=== PATIENT | male | born 1985 | race American Indian/Alaskan Native ===

== ENCOUNTER 2017-01-31 09:02 | Emergency (ER) | payer OTHER ==
[~2017-01-31] VITALS: Ht 182.9 cm; Wt 145.2 kg
[~2017-01-31 09:02] MED LIST: AURALGAN EAR DR14 ML AS; AZITHROMYCIN250 MG PO; CEPHALEXIN500 MG PO; CLARITIN10 MG PO; IBUPROFEN600 MG PO; KEFLEX500 MG PO; METHOCARBAMOL500 MG PO; NAPROXEN500 MG PO; NORCO 5-325 TA1 EACH PO; PERCOCET 5-3251 EACH PO; POLYMYXIN B-TMP10 ML OD; ROBITUSSIN15 MG PO; TRAMADOL HCL50 MG PO; ULTRAM50 MG PO; ZOFRAN ODT8 MG PO
[2017-01-31] MEDS ORDERED: SILDENAFIL20 MG PO (09:38)
[2017-01-31] MEDS ORDERED: KEFLEX500 MG PO (10:35)
== END 2017-01-31 10:46 | disposition home or self-care (01) ==
LOC: ED 09:02
DX: S61.241A Puncture wound with foreign body of left index finger without damage to nail, initial encounter (principal); L03.012 Cellulitis of left finger; F17.200 Nicotine dependence, unspecified, uncomplicated; Z79.899 Other long term (current) drug therapy; W45.0XXA Nail entering through skin, initial encounter
CPT/HCPCS: 73130; 99283

== ENCOUNTER 2017-10-15 09:24 | Emergency (ER) | payer OTHER ==
[~2017-10-15] VITALS: Ht 182.9 cm; Wt 145.2 kg
[~2017-10-15 09:24] MED LIST changes: +SILDENAFIL20 MG PO
== END 2017-10-15 10:25 | disposition home or self-care (01) ==
LOC: ED 09:24
PROC: 0HQGXZZ Repair Left Hand Skin, External Approach (ICD-10-PCS; principal; 2017-10-15)
DX: S61.211A Laceration without foreign body of left index finger without damage to nail, initial encounter (principal); F17.200 Nicotine dependence, unspecified, uncomplicated; W45.8XXA Other foreign body or object entering through skin, initial encounter
CPT/HCPCS: 12001; 99282

== ENCOUNTER 2019-09-06 06:24 | Emergency (ER) | payer OTHER ==
[~2019-09-06] VITALS: Ht 182.9 cm; Wt 136.1 kg
--- OUTSIDE RECORDS SUMMARY | ~2019-09-06 | XMS | Clinical Summary ---
Demographics + + + | Address | [address] | | | [place] [address] | + + + | Home Phone | | + + + | Preferred Language | Unknown | + + + | Marital Status | Single | + + + | Tenriism Affiliation | Unknown | + + + | Race | Unknown | + + + | Ethnic Group | Unknown | + + + Author + + + | Author | [facility] | | | and [place] | + + + | Organization | [facility] | | | and [place] | + + + | Address | Unknown | + + + | Phone | Unavailable | + + + Support + + + + + | Name | Relationship | Address | Phone | + + + + + | Dick Fairchild | RAD[place] | [address] | | | | | [place] | | | | | [address] | | + + + + + Care Team Providers + +------+ + | Care Car Hiker Name | Role | Phone | + +------+ + | Pcp, Prov Inactive | PCP | | + +------+ + Allergies Not on File Medications Not on file Active Problems Not on file Social History + +-------+ +--------+------+ | Tobacco Use | Types | Packs/Day | Years | Date | | | | | Used | | + +-------+ +--------+------+ | Never Assessed | | | | | + +-------+ +--------+------+ + + + | Sex Assigned at | Date Recorded | | | | + + + | Not on file | | + + + Last Filed Vital Signs Not on file Plan of Treatment + + +-------+ + | Health Maintenance | Due Date | Last | Comments | | | | Done | | + + +-------+ + | Vaccine: | | | | | Dtap/Tdap/Td (1 - | 6 | | | | Tdap) | | | | + + +-------+ + | Vaccine: Influenza | | | | | (#1) | 0 | | | + + +-------+ + Results Not on filefrom Last 3 Months Insurance + +--------+ +--------+ +---------+--------+ | Payer | Benefi | Subscriber | Effect | Phone | Address | Type | | | t Plan | ID | attila | | | | | | / | | Dates | | | | | | Group | | | | | | + +--------+ +--------+ +---------+--------+ | [employer] | HEALTH | [id number] | | [phone] | | PPO | | | COMP | | 012-Pr | 7 | | | | | FIRST | | esent | | | | | | CHOICE | | | | | | + +--------+ +--------+ +---------+--------+ | [facility] | IHS | [id number] | | | | Indemn | | SERVICE | YELLOW | | 012-Pr | | | ity | | | HAWK | | esent | | | | + +--------+ +--------+ +---------+--------+ + +--------+ +--------+ + + | Guarantor Name | Accoun | Relation to | Date | Phone | Billing Address | | | t Type | Patient | of | | | | | | | | | | + +--------+ +--------+ + + | Ephraim Fairchild | Person | Self [birth year] | [address] | | | al/Fam | | 1986 | [phone] | [address] [place] | | | lillie | | | 9 (Home) | [phone] | | | | | | [phone] | | | | | | | 4 (Work) | | + +--------+ +--------+ + + Advance Directives + + + + + | Type | Date Recorded | Patient | 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
--- OUTSIDE RECORDS SUMMARY | ~2019-09-06 | XMS | Encounter Summary ---
Demographics + + + | Address | [address] | | | [place] [address] | + + + | Home Phone | | + + + | Preferred Language | Unknown | + + + | Marital Status | Single | + + + | Faith Affiliation | Unknown | + + + | Race | Unknown | + + + | Ethnic Group | Unknown | + + + Author + + + | Author | [facility] | | | and [place] | + + + | Organization | [facility] | | | and [place] | + + + | Address | Unknown | + + + | Phone | Unavailable | + + + Support + + + + + | Name | Relationship | Address | Phone | + + + + + | Dick Fairchild | [place] | [address] | | | | | [place] | | | | | [address] | | + + + + + Care Team Providers + +------+ + | Care Senior Maintenance Mechanic Name | Role | Phone | + +------+ + PCP | Unavailable | + +------+ + Encounter Details +--------+ + + + + | Date | Type | Department | Care Team | Description | +--------+ + + + + | 06/05/ | Hospital | [facility] | Gm Choudhary, | | | 1991 | Encounter | [facility] | MD [address] [facility] | | | | | [address] | [place] | | | | | [place] | [id number] | | | | | [address] | | | | | | [phone] | | | +--------+ + + + + Social History + +-------+ +--------+------+ | Tobacco [...] on file | | + + + documented as of this encounter Plan of Treatment Not on filedocumented as of this encounter Visit Diagnoses Not on filedocumented in this encounter"
--- OUTSIDE RECORDS SUMMARY | 2019-09-06 06:26 | XMS ---
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 Andra has no Care Guidelines for this patient. Reyes VISIT COUNT (12 MO.) 1 GINA Jaimes TOTAL 1 NOTE: Visits indicate total known visits. ED/UCC VISIT TRACKING (12 MO.) 09/06/2019 06:25 GINA Reed [place] TYPE: Emergency COMPLAINT: - SPIDER BITE INPATIENT VISIT TRACKING (12 MO.) No inpatient visits to display in this time frame [id number]
[2019-09-06] MEDS ORDERED: CLEOCIN HCL300 MG PO (10:12)
== END 2019-09-06 10:58 | disposition home or self-care (01) ==
LOC: ED 06:24
DX: K11.1 Hypertrophy of salivary gland (principal); F17.200 Nicotine dependence, unspecified, uncomplicated
CPT/HCPCS: 70491; 80048; 85025; 96374; 96375; 99284-25; J1100; J1200; J3490; Q9967

== ENCOUNTER 2020-06-15 17:15 | Emergency (ER) | payer OTHER ==
[~2020-06-15] VITALS: Ht 182.9 cm; Wt 122.0 kg
[~2020-06-15 17:15] MED LIST changes: +CLEOCIN HCL300 MG PO
--- NOTE | 2020-06-16 10:40 | EKG ---
[facility] [address] [facility] [place] [address] Signed Normal sinus rhythm Normal ECG No previous ECGs available Confirmed by BEL SUH MD ([id number]) on 06/16/2020 10:40:30 AM Electronically Signed By: BEL SUH MD 06/16/20 1040 PATIENT NAME: JAMES RAMOS Electrocardiogram DATE OF : 87 PHYSICIAN: BEL SUH MD REPORT #: [id number] REPORT IS CONFIDENTIAL AND NOT TO BE RELEASED WITHOUT AUTHORIZATION
== END 2020-06-15 18:57 | disposition home or self-care (01) ==
LOC: ED 17:15
DX: T40.411A Poisoning by fentanyl or fentanyl analogs, accidental (unintentional), initial encounter (principal); F17.200 Nicotine dependence, unspecified, uncomplicated
CPT/HCPCS: 71045; 80053; 84484; 85025; 93005; 93010; 99284-25

== ENCOUNTER 2021-10-30 21:42 | Emergency (ER) | payer OTHER ==
[~2021-10-30] VITALS: Ht 182.9 cm; Wt 130.0 kg
--- NOTE | 2021-10-31 17:36 | EKG ---
[facility] [address] [facility] [place] [address] Signed Sinus tachycardia Otherwise normal ECG When compared with ECG of 15-JUN-2020 18:09, No significant change was found Confirmed by BENITEZ FRANKLIN MD ([id number]) on 10/31/2021 5:36:36 PM Electronically Signed By: BENITEZ FRANKLIN MD 10/31/21 1736 PATIENT NAME: JAMES RAMOS Electrocardiogram DATE OF : 87 PHYSICIAN: BENITEZ FRANKLIN MD REPORT #: [id number] REPORT IS CONFIDENTIAL AND NOT TO BE RELEASED WITHOUT AUTHORIZATION
== END 2021-10-31 03:45 | disposition short-term general hospital (02) ==
LOC: ED 21:42
DX: U07.1 COVID-19 (principal); T40.411A Poisoning by fentanyl or fentanyl analogs, accidental (unintentional), initial encounter; J69.0 Pneumonitis due to inhalation of food and vomit; J96.90 Respiratory failure, unspecified, unspecified whether with hypoxia or hypercapnia; F17.200 Nicotine dependence, unspecified, uncomplicated
CPT/HCPCS: 31500; 36415; 36556; 36600; 70450; 71045; 72125; 80053; 81001; 82803; 83605; 84484; 85025; 87502; 93005; 93010; 94002; 94799; 99285-25; A9270; C9803; G0480; J2060; J2543; J2704; J3010; J7030; U0003

== ENCOUNTER 2023-03-09 13:01 | Emergency (ER) | payer OTHER ==
[~2023-03-09] VITALS: Ht 182.9 cm; Wt 127.0 kg
[2023-03-09] MEDS ORDERED: PRED FORTE5 ML OU (18:57)
[2023-03-09 19:04] VITALS: BP 143/99
== END 2023-03-09 19:06 | disposition home or self-care (01) ==
LOC: ED 13:01
DX: H20.9 Unspecified iridocyclitis (principal); F17.200 Nicotine dependence, unspecified, uncomplicated
CPT/HCPCS: 99283

== ENCOUNTER 2023-06-25 11:19 | Emergency (ER) | payer OTHER ==
[~2023-06-25] VITALS: Ht 182.9 cm; Wt 133.9 kg
[~2023-06-25 11:19] MED LIST changes: +IBU600 MG PO; +MAPAP500 MG PO; +NASAL DECONGEST30 MG PO; +PRED FORTE5 ML OU
[2023-06-25] MEDS ORDERED: OMEPRAZOLE20 MG PO (12:09)
[2023-06-25] MEDS ORDERED: GAS RELIEF80 MG PO (12:09)
[2023-06-25 12:15] VITALS: BP 137/88
== END 2023-06-25 12:22 | disposition home or self-care (01) ==
LOC: ED 11:19
DX: R14.3 Flatulence (principal); K21.9 Gastro-esophageal reflux disease without esophagitis; F17.200 Nicotine dependence, unspecified, uncomplicated
CPT/HCPCS: 99283

== ENCOUNTER 2024-01-25 18:58 | Emergency (ER) | payer OTHER ==
[~2024-01-25] VITALS: Ht 182.9 cm; Wt 116.0 kg
[~2024-01-25 18:58] MED LIST changes: +GAS RELIEF80 MG PO; +OMEPRAZOLE20 MG PO
[2024-01-25] MEDS ORDERED: CYCLOBENZAPRINE10 MG PO (21:32)
[2024-01-25] MEDS ORDERED: CYCLOBENZAPRINE HCL 10 MG HOME.PACK PO ONE (21:45)
[2024-01-25 21:51] VITALS: BP 148/93
== END 2024-01-25 21:55 | disposition home or self-care (01) ==
LOC: ED 18:58
DX: S39.012A Strain of muscle, fascia and tendon of lower back, initial encounter (principal); F17.200 Nicotine dependence, unspecified, uncomplicated; Z79.899 Other long term (current) drug therapy; X58.XXXA Exposure to other specified factors, initial encounter
CPT/HCPCS: 72100; 99283